=== PATIENT | female | born 1965 | race Caucasian/White ===

== ENCOUNTER 2017-06-16 11:17 | Emergency (ER) | payer SELFPAY ==
[~2017-06-16] VITALS: Ht 160 cm; Wt 65.0 kg
[2017-06-16 11:18] VITALS: BP 182/81; PULSE 82; RESP 18; TEMP 98.6; O2SAT 100
[2017-06-16] MEDS ORDERED: SODIUM CHLOR 0.9% 1000 ML INJ 1,000 ML IV ONE (11:46)
--- NOTE | 2017-06-16 11:54 | PD ---
HPI Chief Complaint: Angiography Technologist Problem/Complaint Time Seen by Provider: 11:35 Travel History International Travel<30 days: No Contact w/Intl Traveler<30days: [place] Traveled to: Here from [facility] for 2 months History of Present Illness HPI 51-year-old female presents to the emergency department for evaluation of heavy vaginal bleeding for the past 8 days. Patient is here from [place]. She states that she'll be here for approximately one to 2 more months. Patient states that she has intermittent heavy vaginal bleeding over the past 8 days. When her vaginal bleeding is heavy, she will go through a pad every 30 minutes. However, other times it will last several hours. She states she had a history of similar heavy vaginal bleeding back before she had children and it resolved on its own. She was diagnosed with PCOS at that time. Patient is a G5 , P2 with 3 previous miscarriages, 2 live births. Patient denies any chance of at this time. She reports some dizziness, blurry vision, decreased appetite. Patient report reports some pelvic cramping when she is having heavy vaginal bleeding. She states that it will become heavy when she moves around. She took 2 Advil this morning and states that she is not bleeding much at this time. However, last night, after [id number], she noticed heavy vaginal bleeding. Patient denies any syncope. No chest pain or shortness of breath. She has no chronic medical problems and takes no prescribed medications. She reports history of appendectomy and section 2. [facility] Social History Alcohol Use: No Tobacco Use: No Substance Use: No Allergies-Medications (Allergen,Severity, Reaction): Coded Allergies: Sulfa (Sulfonamide Antibiotics) (Verified Allergy, Unknown, 06/16/17) Review of Systems Except as stated in HPI: all other systems reviewed are Neg Physical Exam Narrative GENERAL: Well-nourished, well-developed female patient, ambulatory. Afebrile. SKIN: Focused skin assessment warm/dry. HEAD: Normocephalic. Atraumatic. EYES: No scleral icterus. No injection or drainage. NECK: Supple, trachea midline. No JVD or lymphadenopathy. CARDIOVASCULAR: Regular rate and rhythm without murmurs, gallops, or rubs. RESPIRATORY: Breath sounds equal bilaterally. No accessory muscle use. Lungs sounds are clear to auscultation. GASTROINTESTINAL: Abdomen soft, non-tender, nondistended. MUSCULOSKELETAL: No cyanosis, or edema. BACK: Nontender without obvious deformity. No CVA tenderness. Data Data Last Documented VS Vital Signs Date Time Temp Pulse Resp B/P (MAP) Pulse Ox O2 Delivery O2 Flow Rate FiO2 06/16/17 11:18 98.6 82 18 182/81 (114) 100 Room Air Orders Orders Complete Blood Count With Diff (06/16/17 11:46) Basic Metabolic Panel (Bmp) (06/16/17 11:46) Type And Screen (06/16/17 11:46) Urinalysis - C+S If Indicated (06/16/17 11:46) Sodium Chlor 0.9% 1000 Ml Inj (Ns 1000 M (06/16/17 11:46) Ed Urine Pregnancytest Poc (06/16/17 11:46) Us Pelvis Comp Angiography Technologist/Non-Preg (06/16/17 ) Labs Laboratory Tests Test 06/16/17 12:00 White Blood Count 5.9 TH/MM3 Red Blood Count 3.39 MIL/MM3 Hemoglobin 9.8 GM/DL Hematocrit 29.3 % Mean Corpuscular Volume 86.6 FL Mean Corpuscular Hemoglobin 29.0 PG Mean Corpuscular Hemoglobin Concent 33.5 % Red Cell Distribution Width 14.9 % Platelet Count 294 TH/MM3 Mean Platelet Volume 8.1 FL Neutrophils (%) (Auto) 57.3 % Lymphocytes (%) (Auto) 31.8 % Monocytes (%) (Auto) 8.8 % Eosinophils (%) (Auto) 1.5 % Basophils (%) (Auto) 0.6 % Neutrophils # (Auto) 3.4 TH/MM3 Lymphocytes # (Auto) 1.9 TH/MM3 Monocytes # (Auto) 0.5 TH/MM3 Eosinophils # (Auto) 0.1 TH/MM3 Basophils # (Auto) 0.0 TH/MM3 CBC Comment DIFF FINAL Differential Comment Urine Color LIGHT-YELLOW Urine Turbidity CLEAR Urine pH 5.5 Urine Specific [place] 1.006 Urine Protein NEG mg/dL Urine Glucose (UA) NEG mg/dL Urine Ketones NEG mg/dL Urine Occult Blood MOD Urine Nitrite NEG Urine Bilirubin NEG Urine Urobilinogen LESS THAN 2.0 MG/DL Urine Leukocyte Esterase NEG Urine RBC 2 /hpf Urine WBC LESS THAN 1 /hpf Microscopic Urinalysis Comment CULT NOT INDICATED Blood Urea Nitrogen 14 MG/DL Creatinine 0.53 MG/DL Random Glucose 101 MG/DL Calcium Level 9.0 MG/DL Sodium Level 139 MEQ/L Potassium Level 4.1 MEQ/L Chloride Level 105 MEQ/L Carbon Dioxide Level 26.1 MEQ/L Anion Gap 8 MEQ/L Estimat Glomerular Filtration Rate 123 ML/MIN [facility] Medical Decision Making Medical Screen Exam Complete: Yes Emergency Medical Condition: Yes Medical Record Reviewed: Yes Interpretation(s) pelvic us - CONCLUSION: 1. Enlarged inhomogeneous uterus with hypoechoic mass most characteristic of a leiomyoma. 2. The endometrium is thickened with no distinct mass or fluid. This is nonspecific. 3. Small left ovarian cyst. Differential Diagnosis vaginal bleeding vs. anemia vs. PCOS vs. UTI vs. dysmenorrhea Narrative Course 51 year old female presents to the emergency department for evaluation of intermittent heavy vaginal bleeding over the past 8 days. VSS. CBC, BMP, type and screen, UA, UPT are ordered and pending. Patient is given NS 1 L IV bolus in. Pelvic US is ordered and pending. CBC shows anemia with hemoglobin 9.8, hematocrit 29.3. BMP is unremarkable. UA is negative for acute infection. UPT is negative. Pelvic US shows Enlarged inhomogeneous uterus with hypoechoic mass most characteristic of a leiomyoma; The endometrium is thickened with no distinct mass or fluid. This is nonspecific ; Small left ovarian cyst. Patient denies family or personal history of breast cancer. She is a nonsmoker and has never smoked. I spoke to the OB hospitalist on-call, Dr. Brenner. She recommends follow-up with [employer]. I will give her the name and number for [employer] on- call. She also records Provera 10 mg daily for 10 days. Patient verbalizes agreement and understanding. The patient was discharged in stable condition with instructions, including return instructions and follow up instructions. Diagnosis Primary Impression: Vaginal bleeding Additional Impression: Uterine fibroid Qualified Codes: D25.9 - Leiomyoma of uterus, unspecified Referrals: Hal Gomez MD call for appointment [facility] Patient Instructions: Dysfunctional Uterine Bleeding (ED), General Instructions Additional Instructions: Take iron daily. Take Provera as directed. Follow-up with tanker driver in the next 1-[address] Gomez is our tanker driver on-call. Return to the emergency department for any acute worsening of symptoms. Med/Other Pt SpecificInfo: Prescription(s) given Scripts Ferrous Sulfate (Ferrous Sulfate) 325 Mg (65 Mg Iron) Tablet 325 MG PO DAILY for Nutritional Supplement, #30 TAB 0 Refills Prov: Claudia Dominguez 06/16/17 Medroxyprogesterone Acetate (Provera) 10 Mg Tab 10 MG PO DAILY for Uterine bleeding, #10 TAB 0 Refills Start day 16 Prov: Claudia Dominguez 06/16/17 Disposition: 01 DISCHARGE HOME Condition: Stable Claudia Dominguez Jun 16, 2017 11:54
[2017-06-16 12:18] LABS: AUTOMATED NEUTROPHIL # 3.4 TH/MM3 (1.8-7.7); BASOPHIL % 0.6 % (0.0-2.0); EOSINOPHIL # 0.1 TH/MM3 (0-0.4); EOSINOPHIL % 1.5 % (0.0-4.0); HEMATOCRIT 29.3 % (35.0-46.0); HEMO FLAGS DIFF FINAL; LYMPH % 31.8 % (9.0-44.0); LYMPHOCYTE # 1.9 TH/MM3 (1.0-4.8); MEAN CELL VOLUME 86.6 FL (80.0-100.0); MEAN CORPUSCULAR HGB CONC 33.5 % (32.0-36.0); MONO % 8.8 % (0.0-8.0); NEUT % 57.3 % (16.0-70.0); PLATELET COUNT 294 TH/MM3 (150-450); RED BLOOD COUNT 3.39 MIL/MM3 (4.00-5.30); RED CELL DISTRIBUTION WIDTH 14.9 % (11.6-17.2); WHITE BLOOD COUNT 5.9 TH/MM3 (4.0-11.0)
[2017-06-16 12:24] LABS: BLOOD, URINE MOD (NEG); COMMENT (UR) CULT NOT INDICATED; CULTURE IF INDICATED CULT NOT INDICATED; GLUCOSE,URINE NEG (NEG); KETONE, URINE NEG (NEG); NITRITE,URINE NEG (NEG); PH, URINE 5.5 (5.0-8.5); URINE COLOR LIGHT-YELLOW (YELLW/STRAW)
[2017-06-16 12:28] LABS: BICARBONATE 26.1 MEQ/L (21.0-32.0); POTASSIUM 4.1 MEQ/L (3.5-5.1)
--- NOTE | 2017-06-16 12:49 | RADRPT ---
EXAM DATE/TIME: 06/16/2017 12:20 [place] COMPARISON: No previous studies available for comparison. INDICATIONS : Vaginal bleeding. MEDICAL HISTORY : Vaginal bleeding. SURGICAL HISTORY : section. ENCOUNTER: Initial ACUITY: 2 weeks PAIN SCORE: 2/10 LOCATION: Bilateral pelvis MEASUREMENTS: UTERUS: 10.0 x 7.3 x 8.4 cm ENDOMETRIAL STRIPE: >20 mm RIGHT OVARY: 4.5 x 3.1 x 4.2 cm LEFT OVARY: 2.8 x 2.6 x 2.8 cm FINDINGS: UTERUS: The uterus is enlarged and diffusely heterogeneous. There is no hypoechoic solid mass in the lower ut erus measuring 5.5 x 4.9 x 5.6 cm. The endometrium is thickened measuring greater than 2 cm. This is inhomogeneous but no focal mass or fluid. RIGHT OVARY: Ovary contains no mass or significant cystic lesion. LEFT OVARY: There is a 1.6 x 1.8 x 1.7 cm cyst. MISCELLANEOUS: No free fluid. CONCLUSION: 1. Enlarged inhomogeneous uterus with hypoechoic mass most characteristic of a leiomyoma. 2. The endometrium is thickened with no distinct mass or fluid. This is nonspecific. 3. Small left ovarian cyst. Amadeo Rosales MD on June 16, 2017 at 12:43 Board Certified Radiologist. This report was verified electronically.
[2017-06-16] MEDS ORDERED: PROV10TA PO (13:42)
[2017-06-16] MEDS ORDERED: FERR325T18 PO (13:42)
== END 2017-06-16 14:38 | disposition home or self-care (01) ==
LOC: NEPE 11:17
DX: N93.9 Abnormal uterine and vaginal bleeding, unspecified (principal); D25.9 Leiomyoma of uterus, unspecified; N83.202 Unspecified ovarian cyst, left side; R42 Dizziness and giddiness; D64.9 Anemia, unspecified; Z88.2 Allergy status to sulfonamides
CPT/HCPCS: 76856; 80048; 81001; 84703; 85025; 86850; 86900; 86901; 96360; 99285; J7030